=== PATIENT | female | born 1970 | race Caucasian/White ===

== ENCOUNTER → 2024-02-05 10:29 | Outpatient (REF) | payer OTHER, SELFPAY | LOC: HWRAD 10:29 | PROVIDERS: ATTENDING PHYSICIAN Obstetrics & Gynecology Gynecology; FAMILY PHYSICIAN Physician Assistant Medical | DX: N93.9 Abnormal uterine and vaginal bleeding, unspecified (principal) | CPT/HCPCS: 76830; 76856 ==

== ENCOUNTER 2024-04-02 05:46 | Day surgery (SDC) | payer OTHER, SELFPAY ==
[2024-03-25 10:10] VITALS: BMI 49.2
[2024-03-25 10:36] LABS: % Basophils 0.6 % (0-2); % Eosinophils 2.4 % (0-6); % Immature Granulocytes 0.4 % (0-0.5); % Lymphocytes 36.3 % (20.5-51.1); % Monocytes 5.8 % (1.7-9.3); % Neutrophils 54.5 % (42.2-75.2); Absolute Eosinophils 0.2 10^3/uL (0-0.7); Absolute Lymphocytes 2.5 10^3/uL (1.2-3.4); Absolute Monocytes 0.4 10^3/uL (0.1-0.6); Absolute Neutrophils 3.7 10^3/uL (1.4-6.5); Hemoglobin 11.4 g/dL (12.0-16.0); Mean Corp Hgb Conc. 31.7 g/dL (33.0-37.0); Mean Corpuscular Hgb 26.1 pg (27.0-31.0); Mean Corpuscular Volume 82.6 fL (81.0-99.0); Mean Platelet Volume 9.9 fL (7.4-10.4); Nucleated Red Blood Cells % 0 %; Platelet Count 328 10^3/uL (130-400); Red Blood Cell Count 4.36 10^6/uL (4.20-5.40); White Blood Cell Count 6.8 10^3/uL (4.8-10.8)
[2024-03-25 10:54] LABS: HCG, Serum Qualitative Screen Negative
[2024-04-02] VITALS (7 sets, daily range): BP systolic 106–146; BP diastolic 50–86; BMI 49.2
[2024-04-02 07:03] LABS: HCG, Urine Qualitative Screen Negative
[2024-04-02] MEDS: NORMOSOL-R/PLASMALYTE-A 1000 IV (07:23)
[2024-04-02] MEDS: DILAUDID 0.25 MG IV (09:23)
[2024-04-02] MEDS: TYLENOL 650 MG PO (09:44)
== END 2024-04-02 10:38 | disposition home or self-care (01) ==
LOC: SDS 05:46
PROVIDERS: ATTENDING PHYSICIAN Obstetrics & Gynecology Gynecology; FAMILY PHYSICIAN Physician Assistant Medical
DX: N84.0 Polyp of corpus uteri (principal); N93.9 Abnormal uterine and vaginal bleeding, unspecified
CPT/HCPCS: 58558; 88305; 36415; 81025; 84703; 85025; 86850; 86900; 86901; 87070; 93005